=== PATIENT | male | born 2000 | race Caucasian/White ===

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

== ENCOUNTER 2018-01-01 12:35 | Emergency (ER) | payer OTHER ==
[~2018-01-01] VITALS: Ht 177.8 cm; Wt 100.0 kg
[~2018-01-01 12:35] MED LIST: ALBU8HFA IH
[2018-01-01] MEDS ORDERED: CefoTEtan DISOD 2 GM/DEXTROSE 50 ML IV ONE (14:45)
[2018-01-01 15:50] VITALS: BP 114/68
== END 2018-01-01 15:57 | disposition home or self-care (01) ==
LOC: EMS 12:35
DX: J36 Peritonsillar abscess (principal); J02.9 Acute pharyngitis, unspecified; J45.909 Unspecified asthma, uncomplicated
CPT/HCPCS: 96365; 99284; J3490

== ENCOUNTER 2018-02-10 19:08 | Emergency (ER) | payer OTHER ==
[~2018-02-10] VITALS: Ht 177.8 cm; Wt 97.7 kg
[2018-02-10] MEDS ORDERED: IBUPROFEN 100 MG/5 ML SUSPENSION UDCUP PO ONE (20:30)
[2018-02-10] MEDS ORDERED: CefTRIAXone SODIUM 1 GM/VIAL IM ONE (21:00)
[2018-02-10] MEDS ORDERED: LIDOCAINE HCL/PF 1% 2 ML VIAL IM ONE (21:00)
[2018-02-10] MEDS ORDERED: PredniSONE 20 MG TABLET PO ONE (21:00)
[2018-02-10] MEDS ORDERED: DEXAMETHASONE SOD PHOS 4 MG/ML 5 ML VIAL IM ONE (21:00)
[2018-02-10 21:40] VITALS: BP 144/68
== END 2018-02-10 21:47 | disposition home or self-care (01) ==
LOC: EMS 19:09
DX: J36 Peritonsillar abscess (principal); J02.9 Acute pharyngitis, unspecified; J45.909 Unspecified asthma, uncomplicated
CPT/HCPCS: 87430; 96372; 99284; J0696; J1100; J3490

== ENCOUNTER 2018-11-05 07:32 | Emergency (ER) | payer OTHER ==
[~2018-11-05] VITALS: Ht 177.8 cm; Wt 135.4 kg
[2018-11-05] MEDS ORDERED: LOPERAMIDE HCL 2 MG CAPSULE PO ONE (08:15)
[2018-11-05] MEDS ORDERED: ONDANSETRON HCL 4 MG/2 ML VIAL IVP ONE (08:15)
[2018-11-05] MEDS ORDERED: KETOROLAC TROMETHAMINE 30 MG/ML VIAL IVP ONE (08:15)
[2018-11-05] MEDS ORDERED: SODIUM CHLORIDE 0.9% 1,000 ML IV ONE (08:15)
[2018-11-05 08:34] LABS: BASOPHILS % (AUTO) 0.2 % (0.0-2.0); EOSINOPHILS % (AUTO) 0.2 % (1.0-6.0); HEMATOCRIT 49.2 % (41-53); HEMOGLOBIN 16.9 g/dL (13.5-17.5); LYMPHOCYTES # (AUTO) 0.4 K/uL (1.0-4.8); LYMPHOCYTES % (AUTO) 2.1 % (22.0-44.0); MEAN CORPUSCULAR HEMOGLOBIN 29.7 pg (26.0-34.0); MEAN CORPUSCULAR HGB CONC 34.4 G/dL (31.0-37.0); MEAN CORPUSCULAR VOLUME 86 fL (80-100); MONOCYTES # (AUTO) 0.8 K/uL (0.1-1.0); MONOCYTES % (AUTO) 4.2 % (2.0-9.0); NEUTROPHILS # (AUTO) 18.1 K/uL (1.8-7.7); PLATELET COUNT (AUTO) 263 K/uL (150-450); RED BLOOD CELL COUNT(AUTO) 5.69 MIL/uL (4.50-5.90)
[2018-11-05 08:36] LABS: NEUTROPHILS % (AUTO) 93.3 % (40.0-70.0)
[2018-11-05 08:50] LABS: ANION GAP 9 mmol/L (8-16); CALCIUM, TOTAL 8.6 mg/dL (8.8-10.5); CARBON DIOXIDE 25 mmol/L (22-29); CHLORIDE 102 mmol/L (98-107); CREATININE 0.87 mg/dL (0.60-1.30); GLOMERULAR FILTR. RATE CALC > 60 mL/min (>60); GLUCOSE,RANDOM 125 mg/dL (70-110); SODIUM SERUM 136 mmol/L (136-145); UREA NITROGEN, BLOOD 14 mg/dL (7-18)
[2018-11-05 08:53] LABS: ALANINE AMINOTRANSFERASE 27 U/L (12-78); ALBUMIN 4.1 g/dL (3.4-5.0); ALKALINE PHOSPHATASE 113 U/L (46-116); ASPARTATE AMINOTRANSFERASE 15 U/L (15-37); BILIRUBIN,TOTAL 0.7 mg/dL (0.1-1.0); LIPASE 86 U/L (73-393); TOTAL PROTEIN, SERUM 8.1 g/dL (6.4-8.2)
[2018-11-05 10:24] LABS: APPEARANCE,URINE CLEAR (CLEAR); BILIRUBIN,URINE NEGATIVE (NEGATIVE); GLUCOSE, URINE (UA) NEGATIVE (NEGATIVE); KETONES,URINE TRACE mg/dL (NEGATIVE); LEUKOCYTE ESTERASE ,URINE NEGATIVE (NEGATIVE); NITRATE,URINE NEGATIVE (NEGATIVE); OCCULT BLOOD,URINE TRACE (NEGATIVE); UROBILINOGEN,URINE 0.2 mg/dL (<=1.0)
[2018-11-05 10:29] LABS: BACTERIA,URINE None Seen /HPF (None Seen); PROTEIN,URINE NEGATIVE (NEGATIVE); RBC,URINE 0-2 /HPF (0-2); WBC,URINE None Seen /HPF (0-5)
[2018-11-05 11:01] VITALS: BP 126/78
== END 2018-11-05 11:02 | disposition home or self-care (01) ==
LOC: EMS 07:33
DX: K52.9 Noninfective gastroenteritis and colitis, unspecified (principal); J45.909 Unspecified asthma, uncomplicated
CPT/HCPCS: 36415; 80053; 81001; 83690; 85025; 96361; 96374; 96375; 99283; J1885; J2405; J7030

== ENCOUNTER 2019-11-01 22:03 | Emergency (ER) | payer SELFPAY ==
[~2019-11-01] VITALS: Ht 177.8 cm; Wt 121.8 kg
[2019-11-01] MEDS ORDERED: BECL10.6 IH (22:25)
[2019-11-02 00:05] VITALS: BP 123/67
== END 2019-11-02 00:24 | disposition home or self-care (01) ==
LOC: EMS 22:05
DX: J45.909 Unspecified asthma, uncomplicated (principal); M54.16 Radiculopathy, lumbar region

== ENCOUNTER 2021-05-26 01:20 | Emergency (ER) | payer SELFPAY ==
[~2021-05-26 01:20] MED LIST changes: +BECL10.6 IH
== END 2021-05-26 02:03 | disposition left against medical advice (07) ==
LOC: EMS 01:21
DX: M79.646 Pain in unspecified finger(s) (principal); Z53.21 Procedure and treatment not carried out due to patient leaving prior to being seen by health care provider

== ENCOUNTER 2024-04-28 12:39 | Emergency (ER) | payer OTHER ==
[~2024-04-28] VITALS: Ht 177.8 cm; Wt 100.0 kg
[~2024-04-28 12:39] MED LIST changes: +ALBU18HF12 IH; -ALBU8HFA IH
[2024-04-28 13:01] VITALS: BP 156/99; PULSE 63; RESP 18; TEMP 97.8
[2024-04-28] MEDS ORDERED: TRAM50TA5 PO ×2 (13:51→13:54)
== END 2024-04-28 14:07 | disposition home or self-care (01) ==
LOC: EMS 12:39
DX: K08.89 Other specified disorders of teeth and supporting structures (principal); J45.909 Unspecified asthma, uncomplicated
CPT/HCPCS: 99283; Z7502

== ENCOUNTER 2024-11-13 14:44 | Emergency (ER) | payer OTHER ==
[~2024-11-13] VITALS: Ht 177.8 cm; Wt 102.3 kg
[~2024-11-13 14:44] MED LIST changes: -BECL10.6 IH; +TRAM50TA5 PO
[2024-11-13 14:46] VITALS: TEMP 98.2
[2024-11-13 15:31] VITALS: BP 130/72; PULSE 87; RESP 16; O2SAT 99
== END 2024-11-13 16:25 | disposition home or self-care (01) ==
LOC: EMS 14:44
DX: B85.2 Pediculosis, unspecified (principal); J45.909 Unspecified asthma, uncomplicated; Z00.00 Encounter for general adult medical examination without abnormal findings; Z98.890 Other specified postprocedural states
CPT/HCPCS: 99281; Z7502

== ENCOUNTER 2025-03-21 23:29 | Emergency (ER) | payer OTHER ==
[~2025-03-21] VITALS: Ht 177.8 cm; Wt 102.3 kg
[~2025-03-21 23:29] MED LIST changes: -TRAM50TA5 PO
[2025-03-21 23:32] VITALS: BP 150/86; PULSE 79; RESP 16; TEMP 98.2; O2SAT 100
[2025-03-22] MEDS ORDERED: ACET-2080 PO (00:49)
== END 2025-03-22 01:29 | disposition home or self-care (01) ==
LOC: EMS 23:40
DX: S50.02XA Contusion of left elbow, initial encounter (principal); J45.909 Unspecified asthma, uncomplicated; Z98.890 Other specified postprocedural states; W23.0XXA Caught, crushed, jammed, or pinched between moving objects, initial encounter; Y93.89 Activity, other specified; Y92.89 Other specified places as the place of occurrence of the external cause; Y99.0 Civilian activity done for income or pay
CPT/HCPCS: 29105; 29240; 99283